=== PATIENT | male | born 1950 | race Caucasian/White ===

== ENCOUNTER 2017-01-16 14:08 | Emergency (ER) | payer OTHER ==
[2017-01-16 15:29] LABS: BASOPHILS 0.1 % (0-2); HEMATOCRIT 44.5 % (42.0-54.0); HEMOGLOBIN 14.1 g/dL (13.5-17.5); IMMATURE GRANULOCYTES 0.3 % (0-5); LYMPHOCYTES 32.8 % (15-50); MCHC 31.7 g/dL (31.0-37.0); MCV 82.1 fL (80.0-100.0); MEAN PLATELET VOLUME 11.7 fL (7.4-10.4); NEUTROPHILS 53.8 % (40-80); PLATELET COUNT 160 10x3/uL (130-400); RBC 5.42 10x6/uL (4.20-6.10); RDW 15.5 % (11.5-14.5); WBC 6.9 10x3/uL (4.8-10.8)
[2017-01-16 15:36] LABS: INR 1.1 (0.85-1.17); PROTIME 14.1 SECONDS (11.6-15.0)
[2017-01-16 15:37] LABS: APTT 30.4 SECONDS (22.8-39.4)
[2017-01-16 15:44] LABS: ALBUMIN 3.6 g/dL (3.4-5.0); ALKALINE PHOSPHATASE 167 U/L (46-116); ALT (SGPT) 44 U/L (10-68); CALC OSMOLALITY 276 mosm/kg (275-300); CALCIUM 9.4 mg/dL (8.5-10.1); CARBON DIOXIDE 30.1 mmol/L (21.0-32.0); CHLORIDE - SERUM 103 mmol/L (98-107); CREATININE - SERUM 0.8 mg/dL (0.6-1.3); GLUCOSE 107 mg/dL (74-106); POTASSIUM - SERUM 3.9 mmol/L (3.5-5.1); PROTEIN - SERUM 7.2 g/dL (6.4-8.2); SODIUM 138 mmol/L (136-145); UREA NITROGEN 14 mg/dL (7-18); eGFR NON AFRICAN AMERICAN > 90 mL/min (90-120)
[2017-01-16 15:49] LABS: TROPONIN-I < 0.017 ng/mL (0.000-0.060)
== END 2017-01-16 19:34 | disposition short-term general hospital (02) ==
LOC: D.ER 14:08
PROVIDERS: Family Medicine
DX: G93.89 Other specified disorders of brain (principal); R60.0 Localized edema; F17.200 Nicotine dependence, unspecified, uncomplicated